=== PATIENT | male | born 1995 | race Two or more races ===

== ENCOUNTER 2020-09-12 16:33 | Emergency (ER) | payer SELFPAY ==
[~2020-09-12] VITALS: Ht 182.9 cm; Wt 90.3 kg
[2020-09-12 16:56] VITALS: BP 136/79
[2020-09-12 18:05] LABS: Basophils # (auto) 0 10 ^3/uL (0-0.2); Basophils % (auto) 0.2 % (0.0-2.0); Eosinophils # (auto) 0 10 ^3/uL (0-0.8); Eosinophils % (auto) 0.1 % (0.0-7.0); Hemoglobin 13.5 g/dL (13.5-17.5); Lymphocytes # (auto) 2.4 10 ^3/uL (0.4-5.4); Lymphocytes % (auto) 12.1 % (10.0-50.0); Mean Corpuscular Hemoglobin 29.6 pg (28.0-32.0); Mean Corpuscular Hgb Conc. 33.7 g/dL (32.0-36.0); Mean Corpuscular Volume 87.8 fL (80.0-100.0); Monocytes # (auto) 1.1 10 ^3/uL (0-1.3); Monocytes % (auto) 5.6 % (0.0-12.0); Platelet Count (auto) 348 10^3/uL (140-450); Red Blood Cells 4.55 10^6/uL (4.5-5.90); Red Cell Distribution Width 14.2 % (11.8-14.3); White Blood Cell 19.6 10^3/uL (4.4-10.8)
[2020-09-12 18:44] LABS: Albumin 3.4 g/dL (3.4-5.0); Calcium 9.4 mg/dL (8.5-10.1); Magnesium 2.2 mg/dL (1.6-2.6); Potassium 3.7 mmol/L (3.5-5.1)
[2020-09-12 18:47] LABS: BUN/Creatinine Ratio 12.6; Bilirubin, Total 0.8 mg/dL (0.2-1.0); Total Protein 9.6 g/dL (6.4-8.2)
== END 2020-09-13 07:50 | disposition left against medical advice (07) ==
LOC: ER 16:33
DX: R10.9 Unspecified abdominal pain (principal); Z53.21 Procedure and treatment not carried out due to patient leaving prior to being seen by health care provider
CPT/HCPCS: 36415; 74176; 80053; 83690; 83735; 85025